=== PATIENT | female | born 1980 | race African-American/Black ===

== ENCOUNTER 2017-03-04 17:47 | Emergency (ER) | payer BC, OTHER ==
--- NOTE | ~2017-03-04 | CR229 ---
[facility] A Service of [facility] RADIOLOGY TEXT RESULTS PATIENT: BEKAH MESA LOCATION: SED : 80 UNIT #: [id number] AGE: [address]: Josephine Lees APRN SEX: F ORDER DR: [id number] [address] [address] [id number] E MR#: [id number] Acc #: [id number] NAME: BEKAH MESA : 1980 SEX: F STUDY DATE/TIME: 03/04/2017 17:57 UNIT: SED ROOM: STUDY DESCRIPTION: CR Shoulder Min 2 View Lt Attending Physician: Josephine Lees A.P.R.N. Referring Physician: Josephine Lees A.P.R.N. Ordering Physician: Josephine Mcnair A.P.R.N. Primary Care Physician: Jarvis Gage M.D. MEDICAL IMAGING REPORT This report is preliminary unless electronic signature is present. EXAM Left shoulder 3 views HISTORY Shoulder pain for 2 days. No injury. FINDINGS AP view with internal and external rotation of the shoulder girdle shows satisfactory relationship of the humeral head and glenoid fossa. The joint space is normal. There is no identifiable fracture or dislocation or bony destructive process about the shoulder girdle anatomy. The acromioclavicular joint is normal. There is no radiopaque foreign body in the region. IMPRESSION Normal shoulder. Dictated by... Scott Abreu M.D. THIS IS AN ELECTRONICALLY VERIFIED REPORT Scott Abreu M.D. at 03/05/2017 11:17 PM DFL/savanah TD: 03/05/2017 01:41 JOB #: [id number] MEDICAL IMAGING REPORT Page 1 of 1
[~2017-03-04 17:47] MED LIST: ALBUTEROL17 GM INH; ANAPROX DS550 M1 PO; BENZONATATE PO; BIRTH CONTROL PILL PO; BPM-DM-PHEN SY473 ML PO; CATAFLAM50 MG; CELEXA PO; CLINDAMYCIN LOTION; DICLOFENAC PO; DIFLUCAN PO; DOXYCYCLINE PO; EC-NAPROSYN500 MG PO; FLAGYL PO; FLEXERIL PO; IBUPROFEN PO; LEXAPRO PO; LYRICA75 MG PO; MUCINEX100 MG/5 M PO; NAPROXEN PO; NO MEDICATIONS; NORFLEX100 M1 PO; OTC ALLERGY MED; PHENERGAN25 MG PO; PRAMIPEXOLE DI0.5 MG PO; PROMETHAZINE D118 ML PO; ROBAXIN PO; ROBITUSSIN100 MG/51 PO; SUDAFED30 M1 PO; TYLENOL325 M1 PO; ULTRAM PO; VOLTAREN75 MG PO; ZITHROMAX PO; ZOVIRAX400 MG PO; ZYRTEC-D TABLE1 EACH PO
== END 2017-03-04 19:40 | disposition home or self-care (01) ==
LOC: SED 17:47
DX: S46.912A Strain of unspecified muscle, fascia and tendon at shoulder and upper arm level, left arm, initial encounter (principal); F41.9 Anxiety disorder, unspecified; M79.7 Fibromyalgia; Z98.51 Tubal ligation status; Z88.0 Allergy status to penicillin; X58.XXXA Exposure to other specified factors, initial encounter; Y92.9 Unspecified place or not applicable
CPT/HCPCS: 73030; 99283

== ENCOUNTER → 2017-03-09 | Outpatient (CLI) | payer BC, OTHER ==
[~2017-03-09] MED LIST changes: +TRAMADOL PO
--- NOTE | ~2017-03-09 | MR17 ---
[facility] A Service of [facility] & [facility] RADIOLOGY TEXT RESULTS PATIENT: BEKAH MESA LOCATION: CMRI : 80 UNIT #: [id number] AGE: [address]: Lubna Vanessa MD SEX: F ORDER DR: [id number] [facility] [address] [place], [place] [address] [id number] O MR#: [id number] Acc #: [id number] NAME: BEKAH MESA : 1980 SEX: F STUDY DATE/TIME: 03/09/2017 17:22 UNIT: CMRI ROOM: STUDY DESCRIPTION: MR Brain WWo Contrast Attending Physician: Lubna Vanessa M.D. Referring Physician: Lubna Vanessa M.D. Ordering Physician: Lubna Vanessa M.D. Primary Care Physician: Jarvis Gage M.D. MRI CENTER REPORT This report is preliminary unless electronic signature is present. EXAM MRI of the brain with and without contrast dated 03/09/2017. COMPARISON CT head without contrast dated 10/20/2013. HISTORY Dizziness and headaches for couple of years, it has been on and off. Headaches have become more frequent. History of fibromyalgia, blurry vision. Sees silver specks in both eyes. She has ringing in both ears on and off. FINDINGS Multisequence, multiplanar imaging of the brain was obtained with and without contrast. 19 mL of MultiHance was administered intravenously. No acute stroke, space-occupying intracranial mass, mass effect, midline shift or hydrocephalus. Age-appropriate brain parenchyma is seen. No enhancing mass or lesions are seen. Vascular flow voids of the major cerebral arteries and dural venous sinuses are not obstructed in these thicker slices. There is a widened sella which is partially empty. Pineal region of the cervical spine are within normal limits. IMPRESSION 1. There is a partially empty widened sella. 2. No acute stroke, enhancing mass, hydrocephalus, hemorrhage or midline shift. Dictated by... Coco Magaña M.D. THIS IS AN ELECTRONICALLY VERIFIED REPORT Coco Magaña M.D. at 03/11/2017 2:56 PM CPR/dj [facility] A Service of [facility] & [facility] RADIOLOGY TEXT RESULTS PATIENT: BEKAH MESA [facility] [birth year] UNIT #: [id number] AGE: [address]: Lubna Vanessa MD SEX: F ORDER DR: TD: 03/10/2017 09:51 JOB #: [id number] MRI CENTER REPORT Page 1 of 1 COPY
== END | disposition home or self-care (01) ==
LOC: CMRI 16:29
DX: R42 Dizziness and giddiness (principal)
CPT/HCPCS: 70553; A9577

== ENCOUNTER 2017-03-25 13:16 | Emergency (ER) | payer BC, OTHER ==
[~2017-03-25 13:16] MED LIST changes: -TRAMADOL PO
[2017-03-25 13:28] LABS: URINE SOURCE CLEAN CATCH
[2017-03-25 13:31] LABS: URINE APPEARANCE CLEAR; URINE BILIRUBIN NEG (NEG); URINE BLOOD NEG (NEG); URINE COLOR YELLOW; URINE GLUCOSE NEG (NORM); URINE KETONE NEG (NEG); URINE LEUKOCYTE ESTERASE NEG (NEG); URINE NITRATE NEG (NEG); URINE PH 6.5 (5-8); URINE PROTEIN NEG (NEG); URINE UROBILINOGEN 0.2 MG/DL (NORM)
[2017-03-25 13:32] LABS: MICRO INDICATED? NO
[2017-03-25 13:33] LABS: INFLUENZA A NEG (NEG); INFLUENZA B NEG (NEG)
[2017-03-28 09:51] LABS: CHLAMYDIA TRACH Not Detected (Not Detected); N GONOR Not Detected (Not Detected)
== END 2017-03-25 15:09 | disposition home or self-care (01) ==
LOC: SED 13:16
PROVIDERS: Nurse Practitioner
DX: J06.9 Acute upper respiratory infection, unspecified (principal); N89.8 Other specified noninflammatory disorders of vagina; Z88.0 Allergy status to penicillin; Z79.899 Other long term (current) drug therapy
CPT/HCPCS: 81003; 84703; 87210; 87491; 87591; 87651; 87804; 87808; 87905; 99284

== ENCOUNTER 2017-05-18 17:06 | Emergency (ER) | payer BC, OTHER ==
[2017-05-18 18:04] LABS: URINE SOURCE CLEAN CATCH
[2017-05-18 18:06] LABS: BASOPHIL% 0.7 % (0-2.5); EOSINOPHIL# 0.2 X10e3 (0-0.7); EOSINOPHIL% 3.5 % (0.0-7.0); HEMATOCRIT 38.5 % (35.0-45.0); HEMOGLOBIN 12.6 gm/dL (12.0-16.0); LYMPHOCYTE# 2.1 X10e3 (1.0-3.5); LYMPHOCYTE% 33.2 % (17.0-45.0); MEAN CELL VOLUME 85.2 FL (83-96); MEAN CORPUSCULAR HEMOGLOBIN 27.9 PG (28-34); MEAN CORPUSCULAR HGB CONC 32.7 g/dL (30-36); MEAN PLATELET VOLUME 8.8 FL (6.5-11.5); MONOCYTE# 0.6 X10e3 (0-1.0); MONOCYTE% 9.3 % (3.0-12.0); NEUTROPHIL# 3.3 X10e3 (1.5-7.1); NEUTROPHIL% 53.3 % (40-75); PLATELET COUNT 250 X10e3 (140-420); RED BLOOD COUNT 4.52 X10e (3.90-5.30); RED CELL DISTRIBUTION WIDTH 14.7 % (11.0-15.5); WHITE BLOOD COUNT 6.2 X10e3 (4.0-10.5)
[2017-05-18 18:08] LABS: URINE APPEARANCE CLEAR; URINE BILIRUBIN NEG (NEG); URINE BLOOD NEG (NEG); URINE COLOR YELLOW; URINE GLUCOSE NEG (NORM); URINE KETONE NEG (NEG); URINE LEUKOCYTE ESTERASE NEG (NEG); URINE NITRATE NEG (NEG); URINE PH 6.5 (5-8); URINE PROTEIN NEG (NEG); URINE SPECIFIC GRAVITY 1.025 (1.003-1.035); URINE UROBILINOGEN 0.2 MG/DL (NORM)
[2017-05-18 18:10] LABS: MICRO INDICATED? NO
[2017-05-18 18:12] LABS: DIFF IND NO
[2017-05-18 18:17] LABS: AMPHETAMINE NEG (NEG); BARBITURATES NEG (NEG); BENZODIAZEPINES NEG (NEG); COCAINE NEG (NEG); MARIJUANA NEG (NEG); OPIATES NEG (NEG); TRICYCLIC ANTIDEPRESSANTS NEG (NEG); U METHADONE NEG (NEG)
[2017-05-18 18:24] LABS: ALBUMIN SERUM 3.9 g/dL (3.5-5.0); ALKALINE PHOSPHATASE 78 U/L (32-92); ALT (SGPT) 11 U/L (10-40); AST (SGOT) 15 U/L (10-42); BILIRUBIN,TOTAL 0.3 mg/dL (0.2-2.0); BLOOD UREA NITROGEN 10 mg/dL (9-23); BUN/CREATININE RATIO 14.28; CALCIUM SERUM 8.4 mg/dL (8.4-10.2); CARBON DIOXIDE 24 mmol/L (22-31); CHLORIDE 106 mmol/L (100-111); CREATININE SERUM 0.7 mg/dL (0.6-1.4); GLOM FILT RATE Estimated 128.3 mL/min (>60); GLUCOSE FASTING 81 mg/dL (70-110); POTASSIUM 3.7 mmol/L (3.5-5.1); PROTEIN TOTAL SERUM 7.3 g/dL (6.0-8.3); SODIUM 135 mmol/L (135-145)
[2017-05-18 18:25] LABS: BILIRUBIN, DIRECT <0.1 mg/dL (0.0-0.2); BILIRUBIN,INDIRECT 0.2 mg/dL (0.0-0.9)
== END 2017-05-18 18:59 | disposition home or self-care (01) ==
LOC: SED 17:06
PROVIDERS: Emergency Medicine
DX: R53.83 Other fatigue (principal); Z88.0 Allergy status to penicillin; Z79.899 Other long term (current) drug therapy
CPT/HCPCS: 36415; 80048; 80076; 80307; 81003; 82947; 84443; 84703; 85025; 99283

== ENCOUNTER 2017-08-05 14:09 | Emergency (ER) | payer BC, OTHER ==
[2017-08-05] MEDS ORDERED: TRAMADOL PO (14:32)
== END 2017-08-05 15:15 | disposition home or self-care (01) ==
LOC: SED 14:09
DX: R60.0 Localized edema (principal); F41.9 Anxiety disorder, unspecified; M06.9 Rheumatoid arthritis, unspecified; Z79.899 Other long term (current) drug therapy; Z88.0 Allergy status to penicillin
CPT/HCPCS: 99283